=== PATIENT | female | born 1985 | race Caucasian/White ===

== ENCOUNTER 2018-04-15 17:12 | Emergency (ER) | payer OTHER, SELFPAY ==
[2018-04-15] VITALS (9 sets, daily range): BP systolic 112–129; BP diastolic 67–77; PULSE 91–105; RESP 12–17; TEMP 36.6; O2SAT 99–100
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
[2018-04-15] MEDS: Normal Saline 1,000 ML 1000 ML IV (17:35)
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
[2018-04-15 17:55] LABS: Abs Immature Grans 0.06 k/cumm (0.0-0.09); Absolute Basophil Count 0.06 k/cumm (0.0-0.2); Absolute Lymphocyte Count 1.85 k/cumm (1.2-3.4); Absolute Monocyte Count 0.67 k/cumm (0.11-0.7); Basophils % 0.5; Eosinophils % 0.2; HCT 42.7 % (36.0-46.0); HGB 15.3 g/dL (12.0-15.5); Immature Grans % 0.5; Lymphocytes % 14.8; Mean Corp. HGB Concentration 35.8 g/dL (32.0-36.0); Mean Corpuscular Hemoglobin 29.9 pg (27.0-33.0); Mean Corpuscular Volume 83.4 fL (80-95); Mean Platelet Volume 9.7 fL (8.0-11.0); Monocytes % 5.4; Neutrophils % 78.6; Platelet Count 345 x1000/uL (130-400); RBC 5.12 m/cumm (4.00-5.20); White Blood Cell Count 12.47 k/cumm (4.4-10.8)
[2018-04-15 17:56] LABS: Absolute Eosinophil Count 0.02 k/cumm (0.0-0.7)
[2018-04-15 18:11] LABS: ALT 26 U/L (12-78); AST 23 U/L (15-37); Albumin 3.9 g/dL (3.4-5.0); Alkaline Phosphatase 50 U/L (46-116); Anion Gap 13.2 mmol/L (3-11); BUN 17 mg/dL (7-18); Bilirubin, Total 0.3 mg/dL (0.2-1.0); CO2 21.8 mmol/L (21.0-32.0); CREATININE 0.71 mg/dL (0.55-1.02); Chloride 101 mmol/L (98-107); Glucose 90 mg/dL (70-100); Magnesium 1.9 mg/dL (1.8-2.4); Sodium 136 mmol/L (136-145); Total Protein 7.5 g/dL (6.4-8.2)
[2018-04-15 18:15] LABS: Troponin I < 0.02 ng/mL (0.00-0.06)
[2018-04-15] MEDS: Omnipaque 350 MG/ML 100 ML BTL IJ (18:16)
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
[2018-04-15] MEDS: Ketorolac 30 MG/ML VIAL IVP (20:15)
[2018-04-15] MEDS: Acetaminophen 500 MG TAB 1000 MG PO (20:15)
[2018-04-15] MEDS: Ondansetron O.D.T. 4 MG TABEF (21:16)
[2018-04-16 01:47] VITALS: BP 112/77; PULSE 94; RESP 13; O2SAT 99
== END 2018-04-15 21:21 | disposition home or self-care (01) ==
PROVIDERS: Emergency Provider Physician Assistant
DX: S80.212A Abrasion, left knee, initial encounter (principal); S40.012A Contusion of left shoulder, initial encounter; S30.0XXA Contusion of lower back and pelvis, initial encounter; M54.2 Cervicalgia; J98.11 Atelectasis; V17.0XXA Pedal cycle driver injured in collision with fixed or stationary object in nontraffic accident, initial encounter
CPT/HCPCS: 36415; 73562; 74177; 80053; 81025; 96361; 96374; 99285; 70450; 71260; 72125; 83735; 84484; 85025; 99284; J1885; J3490; L0172